=== PATIENT | male | born 1975 | race American Indian/Alaskan Native ===

== ENCOUNTER 2019-02-05 11:54 | Emergency (ER) | payer SELFPAY ==
--- NOTE | 2019-02-05 12:09 | Emergency Department Report ---
Blank Doc - Documentation Documentation: This is a 43-year-old male that presents with URI symptoms. Stated has allerg ies to pollen. This initial assessment/diagnostic orders/clinical plan/treatment(s) is/are subject to change based on patient's health status, clinical progression and re- assessment by fellow clinical providers in the ED. Further treatment and workup at subsequent clinical providers discretion. Patient/guardians urged not to elope from the ED as their condition may be serious if not clinically assessed and managed. Initial orders include: 1- Patient sent to [facility] for further evaluation and treatment 2- CXR
[2019-02-05 12:11] VITALS: BP 153/97
--- NOTE | 2019-02-05 12:38 | XRay Report ---
ROUTINE CHEST, TWO VIEWS: HISTORY: Cough. The trachea, heart, mediastinal contour, lung coleman and bony thorax are unremarkable. IMPRESSION: Unremarkable chest x-ray.
[2019-02-05] MEDS ORDERED: VIBRAMYCIN PO ONE (12:48)
[2019-02-05] MEDS ORDERED: DELTASONE PO ONE (12:48)
[2019-02-05] MEDS ORDERED: IBUPROFEN PO ONE (12:48)
--- NOTE | 2019-02-05 12:54 | Emergency Department Report ---
Minor Respiratory - HPI Chief Complaint: Chest Pain Stated Complaint: CHEST PAIN Time Seen by Provider: 02/05/19 12:08 Duration: 1 Day Pain Location: Nose, Chest, Other (head) Severity: moderate Minor Respiratory: Yes Rhinorrhea, Yes Able to Tolerate Fluids, Yes Cough, Yes Sick Contacts, Yes Chest Pain, No Sore Throat Other History: Mrs. Leach is a 43 yo male who presents with nasal congestion, cough headache sweats since yesterday. +generalized malaise + tobacco use ED Review of Systems ROS: Stated complaint: CHEST PAIN Other details as noted in HPI Constitutional: chills, fever, malaise ENT: congestion Respiratory: cough, shortness of breath. denies: wheezing Cardiovascular: chest pain Neurological: headache ED Past Medical Hx - Past Medical History Previous Medical History?: No Hx Hypertension: No Hx Heart Attack/AMI: No Hx Congestive Heart Failure: No Hx Diabetes: No Hx Deep Vein Thrombosis: No Hx Pulmonary Embolism: No Hx Liver Disease: No Hx Renal Disease: No Hx Sickle Cell Disease: No Hx Arthritis: No Hx Seizures: No Hx Kidney Stones: No Hx Asthma: No Hx COPD: No Hx Tuberculosis: No Hx Dementia: No Hx HIV: No Additional medical history: shoulder pains. palpatations - Surgical History Past Surgical History?: No Hx Coronary Stent: No Hx Pacemaker: No Hx Internal Defibrillator: No - Social History Smoking Status: Current Every Day Smoker Substance Use Type: Marijuana - Medications Home Medications: Home Medications Medication Instructions Recorded Confirmed Last Taken Type Famotidine [Pepcid] 20 mg PO QDAC #30 tablet 10/18/18 Unknown Rx Loratadine [Claritin] 10 mg PO QDAY #30 tablet 10/18/18 Unknown Rx predniSONE [Prednisone] 10 mg PO BID #24 tablet 10/18/18 Unknown Rx Acetaminophen/Codeine [Tylenol 1 tab PO Q6H PRN #10 tab 02/05/19 Unknown Rx /Codeine # 3 tab] Doxycycline [Vibramycin CAP] 100 mg PO Q12HR 7 Days #14 capsule 02/05/19 Unknown Rx Loratadine 10 mg PO DAILY 30 Days #30 tablet 02/05/19 Unknown Rx predniSONE [Deltasone] 3 tab PO QDAY 3 Days #9 tab 02/05/19 Unknown Rx Minor Respiratory Exam - Exam General: Vital signs noted. No distress. Alert and acting appropriately. HEENT: Yes Moist Mucous Membranes, Yes Rhinorrhea, Yes Frontal Tenderness, Yes Maxillary Tenderness, No Pharyngeal Erythema, No Pharyngeal Exudates, No Conjuctival Injection Ear: Neither EAC Pain, Neither EAC Discharge Neck: Yes Supple, No Adenopathy Lungs: Yes Good Air Exchange, No Wheezes, No Ronchi, No Stridor, No Cough, No Labored Respirations, No Retractions, No Use of Accessory Muscles, No Other Abnormal Lung Sounds Heart: Yes Regular, No Murmur Abdomen: Yes Normal Bowel Sounds, No Tenderness, No Peritoneal Signs Skin: No Rash, No Edema Neurologic: Alert and oriented, no deficits. Musculoskeletal: Unremarkable. ED Course Vital Signs 02/05/19 12:09 Temperature 98.9 F Pulse Rate 94 H Respiratory 20 Rate Blood Pressure 153/97 O2 Sat by Pulse 98 Oximetry ED Medical Decision Making - EKG Data 02/05/19 12:51 EKG obtained 1212 Normal sinus rhythm rate 75 beats a minute normal axis normal intervals no ST elevation nonspecific T wave pattern - Radiology Data Radiology results: report reviewed Chest x-ray PA and lateral no acute process according to radiology report - Medical Decision Making Ms. Barrera presents with symptoms of acute bronchitis and sinusitis. Due to severe symptoms and tobacco use and antibiotics are indicated. Prescription for doxycycline, prednisone Tylenol No. 3 and loratadine provided. Critical care attestation.: If time is entered above; I have spent that time in minutes in the direct care of this critically ill patient, excluding procedure time. ED Disposition Clinical Impression: Acute bronchitis, Acute sinusitis Disposition: DC-01 TO HOME OR SELFCARE Is pt being admited?: No Does the pt Need Aspirin: No Condition: Stable Instructions: Acute Bronchitis (ED), Sinusitis (ED) Prescriptions: predniSONE [Deltasone] 3 tab PO QDAY 3 Days #9 tab Loratadine 10 mg PO DAILY 30 Days #30 tablet Acetaminophen/Codeine [Tylenol /Codeine # 3 tab] 1 tab PO Q6H PRN #10 tab PRN Reason: Pain , Severe (7-10) Doxycycline [Vibramycin CAP] 100 mg PO Q12HR 7 Days #14 capsule Forms: Work/School Release Form(ED)
== END 2019-02-05 14:03 | disposition home or self-care (01) ==
LOC: ED 11:54
DX: J20.9 Acute bronchitis, unspecified (principal); J01.90 Acute sinusitis, unspecified; F17.200 Nicotine dependence, unspecified, uncomplicated; F12.10 Cannabis abuse, uncomplicated
CPT/HCPCS: 71046; 93005; 93010; 99283; J7512

== ENCOUNTER 2019-02-28 20:42 | Emergency (ER) | payer OTHER ==
--- NOTE | 2019-02-28 21:27 | Emergency Department Report ---
Blank Doc - Documentation Documentation: 43 y/o males comes in for penile d/c since Sunday and 1 week of Sore throat. Had unprotected sex with females.
[2019-02-28 21:54] LABS: Bilirubin,Urine NEG (Negative); Blood,Urine NEG (Negative); Color,Urine Yellow (Yellow); Mucus,Urine FEW /HPF; Protein,Urine <15 mg/dL mg/dL (Negative)
[2019-02-28 21:56] LABS: WBC,Urine > 182.0 /HPF (0.0-6.0)
[2019-02-28] MEDS ORDERED: ROCEPHIN IM ONE (23:47)
[2019-02-28] MEDS ORDERED: XYLOCAINE 1% MPF 5 mL INFILTRATI ONE (23:47)
[2019-02-28] MEDS ORDERED: ZITHROMAX PO ONE (23:47)
--- NOTE | 2019-02-28 23:53 | Emergency Department Report ---
ED Male HPI - General Chief complaint: Urogenital-Male Stated complaint: SORE THROAT, HEADACHE, PENILE PAIN Time Seen by Provider: 02/28/19 23:08 Source: patient Mode of arrival: Ambulatory Limitations: No Limitations - History of Present Illness Initial comments: 43 y/o males comes in for penile d/c since Sunday and 1 week of Sore throat. Had unprotected sex with females. MD Complaint: penile discharge (white thick ), other (sore throat ) Onset/Timin -: days(s) Location: penis Radiation: none Severity: moderate Severity scale (0 -10): 5 Quality: burning Consistency: constant Improves with: none Worsens with: urination new sexual partner discharge - Related Data Sexually active: Yes Previous Rx's Medication Instructions Recorded Last Taken Type Famotidine [Pepcid] 20 mg PO QDAC #30 tablet 10/18/18 Unknown Rx Loratadine [Claritin] 10 mg PO QDAY #30 tablet 10/18/18 Unknown Rx predniSONE [Prednisone] 10 mg PO BID #24 tablet 10/18/18 Unknown Rx Acetaminophen/Codeine [Tylenol 1 tab PO Q6H PRN #10 tab 02/05/19 Unknown Rx /Codeine # 3 tab] DOXYCYCLINE Hyclate [Vibramycin 100 mg PO Q12HR 7 Days #14 capsule 02/05/19 Unknown Rx CAP] Loratadine 10 mg PO DAILY 30 Days #30 tablet 02/05/19 Unknown Rx predniSONE [Deltasone] 3 tab PO QDAY 3 Days #9 tab 02/05/19 Unknown Rx Doxycycline Monohydrate 100 mg PO BID 10 Days #20 tablet 02/28/19 Unknown Rx Allergies Allergy/AdvReac Type Severity Reaction Status Date / Time almond Allergy Severe Unknown Verified 02/05/19 11:57 cashew nut Allergy Severe Unknown Verified 02/05/19 11:57 nut - unspecified Allergy Severe Unknown Verified 02/05/19 11:57 ED Review of Systems ROS: Stated complaint: SORE THROAT, HEADACHE, PENILE PAIN Other details as noted in HPI Constitutional: denies: chills, fever Eyes: denies: eye pain, eye discharge, vision change ENT: denies: ear pain, throat pain Respiratory: denies: cough, shortness of breath, wheezing Cardiovascular: as per HPI Endocrine: no symptoms reported Gastrointestinal: denies: abdominal pain, nausea, vomiting, diarrhea Genitourinary: urgency, dysuria, frequency, discharge. denies: hematuria, testicular pain, testicular mass Musculoskeletal: denies: back pain, joint swelling, arthralgia Skin: denies: rash, lesions Neurological: denies: headache, weakness, paresthesias Psychiatric: denies: anxiety, depression Hematological/Lymphatic: denies: easy bleeding, easy bruising ED Past Medical Hx - Past Medical History Hx Hypertension: No Hx Heart Attack/AMI: No Hx Congestive Heart Failure: No Hx Diabetes: No Hx Deep Vein Thrombosis: No Hx Pulmonary Embolism: No Hx Liver Disease: No Hx Renal Disease: No Hx Sickle Cell Disease: No Hx Arthritis: No Hx Seizures: No Hx Kidney Stones: No Hx Asthma: No Hx COPD: No Hx Tuberculosis: No Hx Dementia: No Hx HIV: No Additional medical history: shoulder pains. palpatations - Surgical History Hx Coronary Stent: No Hx Pacemaker: No Hx Internal Defibrillator: No - Social History Smoking Status: Current Some Day Smoker - Medications Home Medications: Home Medications Medication Instructions Recorded Confirmed Last Taken Type Famotidine [Pepcid] 20 mg PO QDAC #30 tablet 10/18/18 Unknown Rx Loratadine [Claritin] 10 mg PO QDAY #30 tablet 10/18/18 Unknown Rx predniSONE [Prednisone] 10 mg PO BID #24 tablet 10/18/18 Unknown Rx Acetaminophen/Codeine [Tylenol 1 tab PO Q6H PRN #10 tab 02/05/19 Unknown Rx /Codeine # 3 tab] DOXYCYCLINE Hyclate [Vibramycin 100 mg PO Q12HR 7 Days #14 capsule 02/05/19 Unknown Rx CAP] Loratadine 10 mg PO DAILY 30 Days #30 tablet 02/05/19 Unknown Rx predniSONE [Deltasone] 3 tab PO QDAY 3 Days #9 tab 02/05/19 Unknown Rx Doxycycline Monohydrate 100 mg PO BID 10 Days #20 tablet 02/28/19 Unknown Rx ED Physical Exam - General Limitations: No Limitations General appearance: alert, in no apparent distress - Head Head exam: Present: atraumatic, normocephalic - Eye Eye exam: Present: normal appearance, PERRL, EOMI Pupils: Present: normal accommodation - ENT ENT exam: Present: mucous membranes moist, TM's normal bilaterally, normal external ear exam - Expanded ENT Exam Expanded Ear exam: Present: normal external inspection Throat exam: Positive: tonsillar erythema, tonsillomegaly, tonsillar exudate, other (uvula midline no stridor mild swelling airway is patent. ). Negative: R peritonsillar mass, L peritonsillar mass - Neck Neck exam: Present: normal inspection, tenderness, full ROM, lymphadenopathy. Absent: meningismus, thyromegaly - Expanded Neck Exam Expanded Neck exam: Absent: tenderness, midline deformity, anterior neck swelling, thyroid mass, carotid bruit, tracheal deviation - Respiratory Respiratory exam: Present: normal lung sounds bilaterally. Absent: respiratory distress, wheezes, stridor, chest wall tenderness - Cardiovascular Cardiovascular Exam: Present: regular rate, normal rhythm, normal heart sounds. Absent: systolic murmur, diastolic murmur, rubs, gallop - GI/Abdominal GI/Abdominal exam: Present: soft, normal bowel sounds. Absent: bruit, hernia - Rectal Rectal exam: Present: deferred - Extremities Exam Extremities exam: Present: normal inspection, full ROM - Back Exam Back exam: Present: normal inspection, full ROM. Absent: tenderness, CVA tenderness (R), CVA tenderness (L), rash noted - Neurological Exam Neurological exam: Present: alert, oriented X3, CN II-XII intact, normal gait - Psychiatric Psychiatric exam: Present: normal affect, normal mood - Skin Skin exam: Present: warm, dry, intact, normal color. Absent: rash ED Course Vital Signs 02/28/19 21:14 Temperature 97.8 F Pulse Rate 66 Respiratory 18 Rate Blood Pressure 160/85 O2 Sat by Pulse 100 Oximetry ED Medical Decision Making - Medical Decision Making this is a STD plan carrie tripathi, dc to home with doxycycline po x 10 days, pt will follow up with health department for hiv and hsv screening in 2 days pt verbalized agreement and understanding of same. Critical care attestation.: If time is entered above; I have spent that time in minutes in the direct care of this critically ill patient, excluding procedure time. ED Disposition Clinical Impression: STD (male) Disposition: DC-01 TO HOME OR SELFCARE Is pt being admited?: No Does the pt Need Aspirin: No Condition: Stable Instructions: Sexually Transmitted Diseases (ED) Prescriptions: Doxycycline Monohydrate 100 mg PO BID 10 Days #20 tablet Referrals: [facility] [Outside] - 3-5 Days Forms: Work/School Release Form(ED) Time of Disposition: 00:00
[2019-02-28] MEDS ORDERED: IBUPROFEN PO ONE (23:54)
[2019-02-28] MEDS ORDERED: IBUPROFEN ONE (23:58)
[2019-03-01 01:48] VITALS: BP 148/101
== END 2019-03-01 00:30 | disposition home or self-care (01) ==
LOC: ED 20:42
DX: A64 Unspecified sexually transmitted disease (principal); F17.200 Nicotine dependence, unspecified, uncomplicated; Z79.899 Other long term (current) drug therapy; Z91.018 Allergy to other foods
CPT/HCPCS: 81001; 87116; 87430; 96372; 99283; J0696

== ENCOUNTER 2021-01-26 17:27 | Emergency (ER) | payer SELFPAY ==
[2021-01-26] MEDS ORDERED: IBUPROFEN 800 MG TAB PO ONE (18:06)
--- NOTE | 2021-01-26 18:07 | Emergency Department Report ---
ED General Adult HPI - General Chief complaint: Fall Stated complaint: RIGHT HAND INJURY, BACK PAIN Time Seen by Provider: 01/26/21 18:06 Source: patient Mode of arrival: Ambulatory Limitations: No Limitations - History of Present Illness Initial comments: 45-year-old -[place] male patient presents with complaints of right hand pain, right arm pain, and left lower rib pain after a slip and fall in the rain today. He denies any head trauma or loss of consciousness, chest pain, or shortness of breath. Patient rates his overall pain as a 10/10 in severity and states he has some difficulty making a fist with his right hand. No difficulty moving the right arm per patient. He denies trying any medication for his symptoms. - Related Data Previous Rx's Medication Instructions Recorded Last Taken Type Famotidine [Pepcid] 20 mg PO QDAC #30 tablet 10/18/18 Unknown Rx Loratadine (Nf) [Claritin (Nf)] 10 mg PO QDAY #30 tablet 10/18/18 Unknown Rx predniSONE [Prednisone] 10 mg PO BID #24 tablet 10/18/18 Unknown Rx Acetaminophen/Codeine [Tylenol 1 tab PO Q6H PRN #10 tab 02/05/19 Unknown Rx /Codeine # 3 tab] DOXYCYCLINE Hyclate [Vibramycin 100 mg PO Q12HR 7 Days #14 capsule 02/05/19 Unknown Rx CAP] Loratadine 10 mg PO DAILY 30 Days #30 tablet 02/05/19 Unknown Rx predniSONE [Deltasone] 3 tab PO QDAY 3 Days #9 tab 02/05/19 Unknown Rx Doxycycline Monohydrate 100 mg PO BID 10 Days #20 tablet 02/28/19 Unknown Rx Acetaminophen/Codeine [Tylenol 1 tab PO Q8H PRN #8 tab 01/26/21 Unknown Rx /Codeine # 3 tab] Naproxen [Naprosyn] 500 mg PO BID PRN #20 tablet 01/26/21 Unknown Rx Allergies Allergy/AdvReac Type Severity Reaction Status Date / Time almond Allergy Severe Unknown Verified 02/05/19 11:57 cashew nut Allergy Severe Unknown Verified 02/05/19 11:57 nut - unspecified Allergy Severe Unknown Verified 02/05/19 11:57 ED Review of Systems ROS: Stated complaint: RIGHT HAND INJURY, BACK PAIN Other details as noted in HPI Constitutional: denies: chills, fever, malaise Respiratory: denies: shortness of breath Cardiovascular: denies: chest pain Gastrointestinal: denies: abdominal pain Musculoskeletal: arthralgia. denies: joint swelling Neurological: denies: headache, numbness, paresthesias ED Past Medical Hx - Past Medical History Previous Medical History?: No Hx Hypertension: No Hx Heart Attack/AMI: No Hx Congestive Heart Failure: No Hx Diabetes: No Hx Deep Vein Thrombosis: No Hx Pulmonary Embolism: No Hx Liver Disease: No Hx Renal Disease: No Hx Sickle Cell Disease: No Hx Arthritis: No Hx Seizures: No Hx Kidney Stones: No Hx Asthma: No Hx COPD: No Hx Tuberculosis: No Hx Dementia: No Hx HIV: No Additional medical history: shoulder pains. palpatations. heart condition - Surgical History Hx Coronary Stent: No Hx Pacemaker: No Hx Internal Defibrillator: No - Social History Smoking Status: Never Smoker Substance Use Type: None - Medications Home Medications: Home Medications Medication Instructions Recorded Confirmed Last Taken Type Famotidine [Pepcid] 20 mg PO QDAC #30 tablet 10/18/18 Unknown Rx Loratadine (Nf) [Claritin (Nf)] 10 mg PO QDAY #30 tablet 10/18/18 Unknown Rx predniSONE [Prednisone] 10 mg PO BID #24 tablet 10/18/18 Unknown Rx Acetaminophen/Codeine [Tylenol 1 tab PO Q6H PRN #10 tab 02/05/19 Unknown Rx /Codeine # 3 tab] DOXYCYCLINE Hyclate [Vibramycin 100 mg PO Q12HR 7 Days #14 capsule 02/05/19 Unknown Rx CAP] Loratadine 10 mg PO DAILY 30 Days #30 tablet 02/05/19 Unknown Rx predniSONE [Deltasone] 3 tab PO QDAY 3 Days #9 tab 02/05/19 Unknown Rx Doxycycline Monohydrate 100 mg PO BID 10 Days #20 tablet 02/28/19 Unknown Rx Acetaminophen/Codeine [Tylenol 1 tab PO Q8H PRN #8 tab 01/26/21 Unknown Rx /Codeine # 3 tab] Naproxen [Naprosyn] 500 mg PO BID PRN #20 tablet 01/26/21 Unknown Rx ED Physical Exam - General Limitations: No Limitations General appearance: alert, in no apparent distress - Head Head exam: Present: atraumatic, normocephalic - Eye Eye exam: Present: normal appearance. Absent: scleral icterus - Neck Neck exam: Present: normal inspection, full ROM - Respiratory Respiratory exam: Present: normal lung sounds bilaterally, chest wall tenderness (Tenderness to palpation noted to the left lower lateral ribs without bruising or obvious deformity). Absent: respiratory distress - GI/Abdominal GI/Abdominal exam: Present: soft. Absent: tenderness - Expanded Upper Extremity Exam Right Forearm Wrist exam: Present: tenderness (Tenderness noted to proximal radius without obvious deformity or bruising noted) Hand Wrist exam: Present: tenderness (Worse over the fifth metacarpal; tenderness to palpation noted of the third through fifth digits without obvious deformity). Absent: full ROM (Patient unable to make fist secondary to pain), swelling, ecchymosis, deformity, erythema Neurosensory exam: Present: radial nerve intact, ulnar nerve intact Vascular: Present: normal capillary refill. Absent: vascular compromise - Back Exam Back exam: Present: full ROM. Absent: paraspinal tenderness, vertebral tenderness - Neurological Exam Neurological exam: Present: alert, oriented X3, normal gait - Psychiatric Psychiatric exam: Present: normal affect, normal mood - Skin Skin exam: Present: warm, dry, intact, normal color. Absent: rash ED Course Vital Signs 01/26/21 01/26/21 18:03 18:04 Temperature 98 F Pulse Rate 78 Respiratory 18 Rate Blood Pressure 164/112 [Left] O2 Sat by Pulse 98 Oximetry ED Medical Decision Making - Radiology Data Radiology results: report reviewed LEFT RIBS 5 VIEWS INDICATION / CLINICAL INFORMATION: MAIN. COMPARISON: None available. FINDINGS: RIBS: No acute, displaced fracture or other acute abnormality. LUNGS: No acute findings. No pneumothorax. RIGHT HAND 3 VIEWS INDICATION / CLINICAL INFORMATION: pain after slip and fall COMPARISON: None available. FINDINGS: BONES / JOINT(S): There is a fracture of the proximal aspect of the fifth metacarpal. The fracture appears to extend into the carpal metacarpal joint. No significant arthritis. SOFT TISSUES: No significant abnormality. ADDITIONAL FINDINGS: None. RIGHT FOREARM 2 VIEWS INDICATION / CLINICAL INFORMATION: proximal pain after slip and fall injury COMPARISON: None available. FINDINGS: BONES / JOINT(S): No acute fracture or subluxation. No significant arthritis. SOFT TISSUES: No significant abnormality. ADDITIONAL FINDINGS: None. - Medical Decision Making 45-year-old -[place] male patient presents with complaints of right hand pain, right arm pain, and left lower rib pain after a slip and fall in the rain today. He denies any head trauma or loss of consciousness, chest pain, or shortness of breath. Patient rates his overall pain as a 10/10 in severity and states he has some difficulty making a fist with his right hand. No difficulty moving the right arm per patient. He denies trying any medication for his symptoms. X-ray of the ribs and right forearm are negative for acute bony abnormality. Right hand x-ray shows fracture to the proximal fifth metacarpal. Patient placed in ulnar gutter splint and tolerated procedure well without any immediate complications. He has normal perfusion and sensation of the fingers post splint application. Patient advised to follow-up with orthopedics within 2 days for further evaluation and treatment. Strict return precautions discussed in detail with patient who verbalized understanding. He is well-appearing, his vitals are within normal limits, he is stable for discharge home. Critical care attestation.: If time is entered above; I have spent that time in minutes in the direct care of this critically ill patient, excluding procedure time. ED Disposition Clinical Impression: Fracture of metacarpal of right hand, closed Qualifiers: Encounter type: initial encounter Metacarpal bone: fifth Metacarpal location: base Fracture alignment: nondisplaced Qualified Code(s): S62.346A - Nondisplaced fracture of base of fifth metacarpal bone, right hand, initial encounter for closed fracture Disposition: DC-01 TO HOME OR SELFCARE Is pt being admited?: No Condition: Stable Instructions: Metacarpal Fracture, Cast or Splint Care, Adult, [id number] Prescriptions: Naproxen [Naprosyn] 500 mg PO BID PRN #20 tablet PRN Reason: Pain, Moderate (4-6) Acetaminophen/Codeine [Tylenol /Codeine # 3 tab] 1 tab PO Q8H PRN #8 tab PRN Reason: Pain , Severe (7-10) Referrals: [facility] [Provider Group] - 01/28/21
--- NOTE | 2021-01-26 18:49 | XRay Report ---
LEFT RIBS 5 VIEWS INDICATION / CLINICAL INFORMATION: MAIN. COMPARISON: None available. FINDINGS: RIBS: No acute, displaced fracture or other acute abnormality. LUNGS: No acute findings. No pneumothorax. Signer Name: Shan Sandoval MD Signed: 01/26/2021 6:44 PM Workstation Name: [id number]
--- NOTE | 2021-01-26 18:50 | XRay Report ---
RIGHT FOREARM 2 VIEWS INDICATION / CLINICAL INFORMATION: proximal pain after slip and fall injury COMPARISON: None available. FINDINGS: BONES / JOINT(S): No acute fracture or subluxation. No significant arthritis. SOFT TISSUES: No significant abnormality. ADDITIONAL FINDINGS: None. Signer Name: Shan Sandoval MD Signed: 01/26/2021 6:45 PM Workstation Name: [id number]
--- NOTE | 2021-01-26 18:52 | XRay Report ---
RIGHT HAND 3 VIEWS INDICATION / CLINICAL INFORMATION: pain after slip and fall COMPARISON: None available. FINDINGS: BONES / JOINT(S): There is a fracture of the proximal aspect of the fifth metacarpal. The fracture ap pears to extend into the carpal metacarpal joint. No significant arthritis. SOFT TISSUES: No significant abnormality. ADDITIONAL FINDINGS: None. Signer Name: Shan Sandoval MD Signed: 01/26/2021 6:47 PM Workstation Name: [id number]
[2021-01-26] MEDS ORDERED: oxyCODONE /ACETAMINOPHEN 5-325MG TAB PO ONE (19:43)
[2021-01-26 23:12] VITALS: BP 152/80
== END 2021-01-26 23:13 | disposition home or self-care (01) ==
LOC: ED 17:27
DX: S62.346A Nondisplaced fracture of base of fifth metacarpal bone, right hand, initial encounter for closed fracture (principal); Z91.018 Allergy to other foods; Z79.899 Other long term (current) drug therapy; W18.30XA Fall on same level, unspecified, initial encounter; Y93.89 Activity, other specified; Y92.89 Other specified places as the place of occurrence of the external cause; Y99.8 Other external cause status